=== PATIENT | female | born 1990 | race African-American/Black ===

== ENCOUNTER 2019-06-15 13:53 | Emergency (ER) | payer MEDICAID, OTHER ==
[2019-06-15 14:40] VITALS: BP 179/94
[2019-06-15 15:35] LABS: A TYPE INFLUENZA AG NEGATIVE (NEGATIVE); B INFLUENZA AG NEGATIVE (NEGATIVE)
--- NOTE | 2019-06-15 17:19 | ER Document Report ---
HPI - HPI Time Seen by Provider: 06/15/19 14:29 Pain Level: Denies Notes: Otherwise healthy 29-year-old female presenting to the emergency department with "chills and puffiness around my eyes". Patient thinks she is coming down the flu. She is requesting a flu test at this time. Patient is not sure if she has had a fever because she has not checked it. She denies any nausea, vomiting, diarrhea or cough. - CONSTITUTIONAL Constitutional: REPORTS: Chills. DENIES: Fever - REPRODUCTIVE LMP: 06/14/19 Reproductive: DENIES: : Past Medical History - General Information source: Patient - Social History Smoking Status: Never Smoker Chew tobacco use (# tins/day): No Frequency of alcohol use: None Drug Abuse: None Family History: Reviewed & Not Pertinent Patient has suicidal ideation: No Patient has homicidal ideation: No - Medical History Medical History: Negative Surgical Hx: Negative - Immunizations Immunizations up to date: Yes Vertical Provider Document - CONSTITUTIONAL Notes: PHYSICAL EXAMINATION: GENERAL: Well-appearing, well-nourished and in no acute distress. HEAD: Atraumatic, normocephalic. EYES: Pupils equal round and reactive to light, extraocular movements intact, conjunctiva are normal. ENT: Nares patent, oropharynx clear without exudates. Moist mucous membranes. NECK: Normal range of motion, supple without lymphadenopathy LUNGS: Breath sounds clear to auscultation bilaterally and equal. No wheezes rales or rhonchi. HEART: Regular rate and rhythm without murmurs ABDOMEN: Soft, nontender, nondistended abdomen. No guarding, no rebound. No masses appreciated. Female : deferred Musculoskeletal: Normal range of motion, no pitting or edema. No cyanosis. NEUROLOGICAL: Cranial nerves grossly intact. Normal speech, normal gait. Normal sensory, motor exams PSYCH: Normal mood, normal affect. SKIN: Warm, Dry, normal turgor, no rashes or lesions noted. - INFECTION CONTROL TRAVEL OUTSIDE OF THE [place] IN LAST 30 DAYS: No Course - Re-evaluation Re-evalutation: Laboratory 06/15/19 14:50 Influenza A (Rapid) NEGATIVE Influenza B (Rapid) NEGATIVE Influenza testing was negative. Likely viral illness. This was discussed with the patient, patient verbalized understanding and agreement with conservative home measures. This is outlined in her discharge instructions. ED return precautions discussed. - Vital Signs Vital signs: Temp Pulse Resp BP Pulse Ox 98.1 F 74 179/94 H 100 06/15/19 14:27 06/15/19 14:27 06/15/19 14:27 06/15/19 14:27 Discharge - Discharge Clinical Impression: Flu-like symptoms Fever Qualifiers: Fever type: unspecified Qualified Code(s): R50.9 - Fever, unspecified Condition: Stable Disposition: HOME, SELF-CARE Additional Instructions: Viral Syndrome The physician has diagnosed a viral infection. Viruses not only cause "colds," but can cause many different symptoms including generalized aching, fever, headache, cough, diarrhea, nausea, vomiting, and fatigue. The treatment, for the most part, is simply relief of symptoms. This means that antibiotics are usually not given. Rest, fluids, pain medications and, occasionally, medication for the specific symptoms that are most bothersome will be prescribed. Use good handwashing to avoid passing the virus to others. Shared toys should be cleaned with disinfectant. Clean the toilets, sinks, and counter surfaces in bathrooms. Launder clothing in hot water. Contact the physician if you develop any new or unusual symptoms such as severe headache, stiff neck, high fever, chest pain, productive cough, or shortness of breath. You should be rechecked if you don't see marked improvement within seven to 10 days. Forms: Return to Work
== END 2019-06-15 17:26 | disposition home or self-care (01) ==
LOC: ER 13:53
DX: J11.1 Influenza due to unidentified influenza virus with other respiratory manifestations (principal); R50.9 Fever, unspecified
CPT/HCPCS: 87804; 99283

== ENCOUNTER 2020-06-04 13:53 | Emergency (ER) | payer BC ==
[2020-06-04] MEDS ORDERED: ACETAMINOPHEN 325 MG TABLET PO ONE (14:37)
--- NOTE | 2020-06-04 14:39 | ER Document Report ---
ED Medical Screen (RME) - General Chief Complaint: Headache >24 hrs old Stated Complaint: HEADACHE,WEAKNESS Time Seen by Provider: 06/04/20 14:32 Mode of Arrival: Ambulatory Information source: Patient Notes: 30-year-old female patient presenting to the emergency department chief complaint of headache in the setting of possible . Patient reports she believes she is 24 weeks based upon her last menstrual cycle however she has not had a confirmation nor has she seen a medical provider. Patient reports low abdominal/pelvic cramping but denies any passage of fluids or vaginal bleeding. She states she wants to see a doctor for care but has just been putting it off. Last menstrual cycle was in December. Abdominal exam limited by patient's body habitus. I have greeted and performed a rapid initial assessment of this patient. A comprehensive ED assessment and evaluation of the patient, analysis of test results and completion of the medical decision making process will be conducted by additional ED providers. I have specifically instructed the patient or family members with the patient to immediately return to any nursing staff should anything change in the patient's condition or with their chief complaint. TRAVEL OUTSIDE OF THE [place] IN LAST 30 DAYS: No - Related Data Allergies/Adverse Reactions: No Known Allergies Allergy (Unverified 06/15/19 14:28) Past Medical History - Immunizations Immunizations up to date: Yes Physical Exam - Vital signs Vitals: Temp Pulse Resp BP Pulse Ox 98.3 F 112 H 20 150/92 H 100 06/04/20 14:04 06/04/20 14:04 06/04/20 14:04 06/04/20 14:04 06/04/20 14:04 Course - Vital Signs Vital signs: Temp Pulse Resp BP Pulse Ox 98.3 F 112 H 20 150/92 H 100 06/04/20 14:04 06/04/20 14:04 06/04/20 14:04 06/04/20 14:04 06/04/20 14:04
[2020-06-04 15:30] LABS: APPEARANCE,URINE CLOUDY; BILIRUBIN,URINE SMALL (NEGATIVE); COLOR,URINE AMBER; GLUCOSE, URINE NEGATIVE (NEGATIVE); KETONES,URINE 80 mg/dL (NEGATIVE); LEUKOCYTE ESTERASE,URINE SMALL (NEGATIVE); NITRITE,URINE NEGATIVE (NEGATIVE); PROTEIN,URINE 100 mg/dL (NEGATIVE); URINE SPECIFIC GRAVITY 1.029
[2020-06-04 15:33] LABS: HEMATOCRIT 22.7 % (36.0-47.0); MEAN CORPUSCULAR HEMOGLOBIN 16.9 pg (27.0-33.4); MEAN CORPUSCULAR HGB CONC 29.7 g/dL (32.0-36.0); PLATELET COUNT 158 10^3/uL (150-450); RED BLOOD COUNT 3.97 10^6/uL (3.72-5.28); RED CELL DISTRIBUTION WIDTH 22.2 % (11.5-14.0); WHITE BLOOD COUNT 3.8 10^3/uL (4.0-10.5)
[2020-06-04 15:45] LABS: ALBUMIN 3.8 g/dL (3.5-5.0); ALKALINE PHOSPHATASE 55 U/L (38-126); ANION GAP 8 (5-19); ASPARTATE AMINO TRANSFERASE 37 U/L (14-36); BILIRUBIN,DIRECT 0.4 mg/dL (0.0-0.4); BILIRUBIN,TOTAL 1.3 mg/dL (0.2-1.3); BLOOD UREA NITROGEN 12 mg/dL (7-20); CALCIUM 8.8 mg/dL (8.4-10.2); CARBON DIOXIDE 18 mmol/L (22-30); CHLORIDE 104 mmol/L (98-107); GLUCOSE 91 mg/dL (75-110); POTASSIUM 3.8 mmol/L (3.6-5.0); TOTAL PROTEIN 7.1 g/dL (6.3-8.2)
[2020-06-04 15:53] LABS: HEMOGLOBIN 6.7 g/dL (12.0-15.5); MEAN CORPUSCULAR VOLUME 57 fl (80-97)
[2020-06-04 16:04] LABS: ABSOLUTE LYMPHOCYTES# (MANUAL) 0.9 10^3/uL (0.5-4.7); ABSOLUTE MONOCYTES # (MANUAL) 0.2 10^3/uL (0.1-1.4); BAND NEUTROPHILS % (MANUAL) 1 % (3-5); BASOPHILS % (MANUAL) 1 % (0-2); EOSINOPHILS % (MANUAL) 0 % (0-6); LYMPHOCYTES % (MANUAL) 24 % (13-45); MONOCYTES % (MANUAL) 6 % (3-13); SEGMENTED NEUTROPHILS % (MAN) 68 % (42-78); TOTAL CELLS COUNTED 100
[2020-06-04 16:07] LABS: ANISOCYTOSIS 3+; HYPOCHROMASIA 4+; OVALOCYTES 2+; POLYCHROMASIA SLIGHT
[2020-06-04 16:08] LABS: PLATELET COMMENT ADEQUATE; PLATELET LARGE PRESENT; TEAR DROP CELLS SLIGHT
[2020-06-04] MEDS ORDERED: NORMAL SALINE 250 ML IV PRN ×2 (21:00)
[2020-06-04 21:24] LABS: ABSOLUTE RETICS # 0.066 10^6/uL (0.028-0.122); RETICULOCYTE COUNT (AUTO) 1.67 % (0.66-2.85)
--- NOTE | 2020-06-04 21:52 | RADIOLOGY REPORT (SQ) ---
EXAM DESCRIPTION: U/S OB 14+ TRNABD 1GES W/O DOP 06/04/2020 9:02 PM [facility] [employer] CLINICAL HISTORY: 30 years Female, 24w no prior US anemia; ; COMPARISON: None. FINDINGS: Cervix is closed, measuring 4 cm in length. Single live intrauterine is identified with measurements as follows: Biparietal diameter: 6.35 cm Head circumference: 23.58 cm Abdominal circumference: 22.62 cm Femoral length: 4.66 cm Estimated weight is 914 g (2 lbs. 0 oz.) Estimated gestational age is 26 weeks and 0 days Estimated date of delivery is 09/10/2020 Placenta is fundal/anterior, grade 2. It appears somewhat heterogenous in echogenicity. heart rate is 144 bpm Amniotic fluid index is 21.9 cm presentation is vertex Neither maternal ovary was visualized No free fluid. IMPRESSION: Single live intrauterine , as above.
[2020-06-04 22:44] LABS: INTERNATIONAL RATION (INR) 1.13; PROTHROMBIN TIME 14.7 SEC (11.4-15.4)
[2020-06-04 22:45] LABS: PARTIAL THROMBOPLASTIN TIME 33.2 SEC (23.5-35.8)
[2020-06-04] MEDS ORDERED: NORMAL SALINE 1000 ML 1,000 ML IV ONE (23:12)
[2020-06-05 01:55] LABS: HEMATOCRIT 23.7 % (36.0-47.0); MEAN CORPUSCULAR HEMOGLOBIN 18.1 pg (27.0-33.4); MEAN CORPUSCULAR HGB CONC 29.6 g/dL (32.0-36.0); PLATELET COUNT 135 10^3/uL (150-450); RED BLOOD COUNT 3.87 10^6/uL (3.72-5.28); RED CELL DISTRIBUTION WIDTH 26.1 % (11.5-14.0); WHITE BLOOD COUNT 3.1 10^3/uL (4.0-10.5)
[2020-06-05 02:00] LABS: MEAN CORPUSCULAR VOLUME 61 fl (80-97)
[2020-06-05 02:16] LABS: ABSOLUTE LYMPHOCYTES# (MANUAL) 0.6 10^3/uL (0.5-4.7); ABSOLUTE MONOCYTES # (MANUAL) 0.3 10^3/uL (0.1-1.4); BASOPHILS % (MANUAL) 0 % (0-2); EOSINOPHILS % (MANUAL) 0 % (0-6); LYMPHOCYTES % (MANUAL) 20 % (13-45); MONOCYTES % (MANUAL) 10 % (3-13); NUCLEATED RED BLOOD CELLS 1 /100 WBC (0); SEGMENTED NEUTROPHILS % (MAN) 70 % (42-78); TOTAL CELLS COUNTED 100
[2020-06-05 02:17] LABS: ANISOCYTOSIS 3+; HYPOCHROMASIA 3+; PLATELET COMMENT ADEQUATE; POIKILOCYTOSIS 2+; POLYCHROMASIA 1+; SCHISTOCYTES 1+; TARGET CELLS 2+; TEAR DROP CELLS 2+
--- NOTE | 2020-06-05 03:38 | ER Document Report ---
ED General - General Chief Complaint: Headache >24 hrs old Stated Complaint: HEADACHE,WEAKNESS Time Seen by Provider: 06/04/20 14:32 Primary Care Provider: PATRICIA WEBBER MD [COMMUNITY BASED STAFF] - Follow up in 1 week SADIE RAMIREZ MD [ACTIVE STAFF] - Follow up in 3-5 days DARIO LEMUS MD [ACTIVE PROVISIONAL STAFF] - Follow up in 3-5 days Mode of Arrival: Ambulatory Notes: 30-year-old female G2, P0 LMP 01/14/2020 with history of high blood pressure, iron deficiency anemia presents with generalized weakness over the past several weeks worse over the past several days. Patient endorses having a mild global headache that came on suddenly and resolved with Tylenol yesterday. Patient also has been having some discomfort in her lower abdomen bilaterally radiating to back for the past several weeks. Patient is but has not had any gynecologic care this , patient is unable to explain why that is she just says that she felt fine so she did not go yet. Patient denies any change in vision/speech/gait, weakness or numbness, vertigo, trauma, neck pain or sti ffness, fever, vomiting, diarrhea constipation, black or bloody stool, vaginal bleeding, vaginal discharge, flank pain, dysuria/urgency/frequency/hematuria, rashes, easy bruising, syncope, chest pain, shortness of breath, recent illness, cough TRAVEL OUTSIDE OF THE [place] IN LAST 30 DAYS: No - Related Data Allergies/Adverse Reactions: No Known Allergies Allergy (Unverified 06/15/19 14:28) Past Medical History - General Information source: Patient - Social History Smoking Status: Never Smoker Family History: Reviewed & Not Pertinent - Immunizations Immunizations up to date: Yes Review of Systems - Review of Systems Notes: REVIEW OF SYSTEMS: CONSTITUTIONAL : Denies fever, chills, or sweats. EENT: Denies recent cold/sinus symptoms, denies throat pain CARDIOVASCULAR: Denies chest pain, STEW RESPIRATORY: Denies cough, denies shortness of breath. GASTROINTESTINAL: + abdominal pain, -nausea/vomiting. GENITOURINARY: Denies difficulty urinating, painful urination. FEMALE GENITOURINARY: Denies vaginal bleeding, vaginal discharge. MUSCULOSKELETAL: Denies neck pain, back pain. SKIN: Denies rash or skin lesions. HEMATOLOGIC : Denies easy bruising or bleeding. LYMPHATIC: Denies swollen, enlarged glands. NEUROLOGICAL: Denies headache, denies change in gait. PSYCHIATRIC: Denies anxiety or stress or depression. Physical Exam - Vital signs Vitals: Temp Pulse Resp BP Pulse Ox 98.3 F 112 H 20 150/92 H 100 06/04/20 14:04 06/04/20 14:04 06/04/20 14:04 06/04/20 14:04 06/04/20 14:04 - Notes Notes: PHYSICAL EXAMINATION: GENERAL: Well-appearing, well-nourished and in no acute distress. HEAD: Atraumatic, normocephalic. EYES: Pupils equal round and appropriate constriction, sclera anicteric, conjunctiva are normal. ENT: nares patent, moist mucous membranes. NECK: Normal range of motion, supple without lymphadenopathy LUNGS: Breath sounds clear to auscultation bilaterally and equal. No wheezes rales or rhonchi. Patient with positional tachypnea when she lies low in bed and gravid uterus puts pressure on thoracic cavity but when she positions herself well this resolves HEART: Borderline tachycardia, no murmurs ABDOMEN: Soft, nontender, no guarding, gravid uterus above umbilicus, no rebound, no CVA tenderness EXTREMITIES: Normal range of motion, no pitting or edema. No cyanosis. NEUROLOGICAL: Awake, alert, conversing appropriately, moves all extremities spontaneously. Cranial nerves II through XII intact bilaterally, normal [id number] bilaterally, 5 of 5 strength in all extremities, normal sensation of the lower extremities, non-ataxic steady narrow-based gait SKIN: Warm, Dry, normal turgor, no rashes or lesions noted. Course - Re-evaluation Re-evalutation: 06/05/20 03:38 Patient presenting with mild bilateral abdominal pain radiating to back likely secondary to round ligament pain given history, exam, and stage of . Patient also complains of intermittent headache which is now resolved and feeling generally weak. Patient has a history of iron deficiency anemia however has been noncompliant with iron supplementation. Patient is unsure what her last hemoglobin is. Patient has had no signs of bleeding and has not followed up with her doctor recently. Patient's guaiac was negative and she had no bowel symptoms. Found to have a hemoglobin of 6.7 which is likely causing her generalized weakness and her headaches. Normal neuro exam. No signs of infection. Very mild hypertension and history of prior hypertension which she is not treating. Presentation not consistent with preeclampsia. Presentation is concerning for pancytopenia of unknown etiology that would require work-up with contract manager outpatient who she can also follow her anemia with. I explained this finding to patient and explained importance of closely following up with OB which she says she will do. No emergent findings on ultrasound. Patient mildly tachypneic only positionally and is asymptomatic, no indication to rule out PE. Patient ready for discharge, I gave extensive return to ED precautions which he demonstrate understanding of. Patient tolerated transfusion well. Patient's hemoglobin only mildly improved however patient was also given fluids and was mildly dehydrated at start and repeat CBC shows signs of hemodilution. Patient feels symptomatically improved and is in agreement with discharge and follow-up plan. - Vital Signs Vital signs: Temp Pulse Resp BP Pulse Ox 98.5 F 94 22 H 124/79 100 06/05/20 03:55 06/05/20 01:33 06/05/20 03:55 06/05/20 03:56 06/05/20 03:55 - Laboratory Results Result Diagrams: 06/05/20 01:46 06/04/20 15:05 Laboratory Results Interpreted: 06/04/20 06/04/20 06/04/20 15:05 15:05 15:05 WBC 3.8 L Hgb 6.7 L Hct 22.7 L MCV 57 L MCH 16.9 L MCHC 29.7 L RDW 22.2 H Plt Count Band Neutrophils % 1 L Sodium 130.1 L Carbon Dioxide 18 L Iron TIBC AST 37 H Beta HCG, Quant 25643.00 H Urine Protein 100 H Urine Ketones 80 H Urine Bilirubin SMALL H Urine Urobilinogen 4.0 H Ur Leukocyte Esterase SMALL H Crossmatch 06/04/20 06/04/20 06/05/20 15:05 17:05 01:46 WBC 3.1 L Hgb 7.0 L Hct 23.7 L MCV 61 L D MCH 18.1 L MCHC 29.6 L RDW 26.1 H Plt Count 135 L Band Neutrophils % Sodium Carbon Dioxide Iron 24.0 L TIBC 551 H AST Beta HCG, Quant Urine Protein Urine Ketones Urine Bilirubin Urine Urobilinogen Ur Leukocyte Esterase Crossmatch See Detail Critical Laboratory Results Reviewed: No Critical Results - Radiology Results Critical Radiology Results Reviewed: No Critical Results Discharge - Discharge Clinical Impression: Intrauterine Anemia Qualifiers: Anemia type: iron deficiency Iron deficiency anemia type: unspecified iron deficiency Qualified Code(s): D50.9 - Iron deficiency anemia, unspecified Headache Qualifiers: Headache type: unspecified Headache chronicity pattern: acute headache Intractability: not intractable Qualified Code(s): R51.9 - Headache, unspecified Disposition: HOME, SELF-CARE Additional Instructions: You are very anemic today and also your other blood counts for your white blood cells and your platelets were low. This is called pancytopenia. You will need to see a contract manager, a blood doctor, to evaluate this and make sure it is not a sign of something dangerous such as cancer. Take iron supplementation and vitamins as prescribed. Follow-up with a product safety technical assistant within 3 days. If you have any recurrent weakness, dizziness, fainting, belly pain, vomiting, fever of 100.4 or higher, black stool, bloody stool, vaginal bleeding, or any other worsening or alarming symptoms return to emergency department immediately. Prescriptions: Ferrous Sulfate 325 mg PO TID 7 Days #21 tablet.dr Gleason No.95/Ferrous Fum/Folic AC [ Caplet] 1 each PO QAM 7 Days #7 tablet Referrals: DARIO LEMUS MD [ACTIVE PROVISIONAL STAFF] - Follow up in 3-5 days SADIE RAMIREZ MD [ACTIVE STAFF] - Follow up in 3-5 days PATRICIA WEBBER MD [COMMUNITY BASED STAFF] - Follow up in 1 week
[2020-06-05 04:06] VITALS: BP 124/79
[2020-06-05 12:42] LABS: PATH REVIEW PATHOLOGIST REVIEWED
== END 2020-06-05 04:06 | disposition home or self-care (01) ==
LOC: ER 13:53
DX: O16.2 Unspecified maternal hypertension, second trimester (principal); O26.892 Other specified pregnancy related conditions, second trimester; R51.9 Headache, unspecified; D50.9 Iron deficiency anemia, unspecified; R53.1 Weakness; R10.30 Lower abdominal pain, unspecified; M54.9 Dorsalgia, unspecified; Z79.899 Other long term (current) drug therapy; Z3A.26 26 weeks gestation of pregnancy
CPT/HCPCS: 86900; 86901; 36415; 36430; 86850; 82607; 82728; 82746; 84702; 83540; 83550; 85025; 85610; 85730; 85045; 80053; 81001; 86920; 76805; P9016; U0003; J7030; C9803; 87635; 96360; 96361; 99285